=== PATIENT | male | born 1990 | race Hispanic/Latino ===

== ENCOUNTER 2018-03-09 06:59 | Emergency (ER) | payer OTHER ==
[~2018-03-09] VITALS: Ht 175.3 cm; Wt 86.2 kg
--- NOTE | 2018-03-09 07:25 | ED CARDIAC/CP/PALPITATIONS ---
History of Present Illness General Chief Complaint: Chest Pain Stated Complaint: THIGHTNESS IN CHEST ? ANXIETY Source: patient Exam Limitations: no limitations Vital Signs & Intake/Output Vital Signs & Intake/Output Vital Signs Date Time Temp Pulse Resp B/P B/P Pulse O2 O2 Flow FiO2 Mean Ox Delivery Rate 03/09 908 97.9 70 20 139/64 98 Room Air 03/09 0729 98 Room Air 03/09 0713 98.4 92 18 151/79 98 Room Air Room Air Allergies Coded Allergies: lactose (Intermediate, ABD CRAMPING, DIARRHEA 03/09/18) Reconcile Medications No Known Home Medications Triage Note: EKG DONE, PT TO ED WITH C/O CHEST TIGHTNESS, DIFF BREATHING, "I HAD THE SAME, LAST WEEK WATCHING TB BUT IT WAS A SHARP PAIN, BUT I CALMED DOWN AND IT WENT AWAY". PT TOOK NO MEDS FOR THE PAIN. Triage Nurses Notes Reviewed? yes HPI: 27-year-old presents to the emergency department after an episode of substernal chest tightness that occurred while he was getting ready for work. Patient had just found out that his girlfriend is and he has a 6-month-old son ready. Patient states that this has occurred over the past when he has gotten startling use. The tightness lasted approximately 10-15 minutes and then resolved on its own. Patient works for the [employer] and has active child but is able to do his job without any difficulties, chest pain or shortness of breath. Patient states during the episode of chest tightness he felt like he was having difficulty catching his breath. There is no recent plane travel or long trips. There is no leg swelling. He had a similar episode a few days ago and that tightness he rated at 10 out of 10 however this morning's episode was not nearly as bad. Patient did become concerned because his father around the age of 30 and he does not know why. Past History Travel History Traveled to [place] past 21 day No Medical History Any Pertinent Medical History? 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 No Review of Systems Review of Systems Constitutional: Reports: no symptoms. EENTM: Reports: no symptoms. Respiratory: Reports: see HPI, short of breath. Cardiovascular: Reports: see HPI, chest pain. GI: Reports: no symptoms. Genitourinary: Reports: no symptoms. Musculoskeletal: Reports: no symptoms. Skin: Reports: no symptoms. Neurological/Psychological: Reports: no symptoms. Hematologic/Endocrine: Reports: no symptoms. Immunologic/Allergic: Reports: no symptoms. All Other Systems: Reviewed and Negative Physical Exam Physical Exam General Appearance: well developed/nourished, alert, awake, mild distress Head: atraumatic Eyes: Bilateral: PERRL, EOMI. Ears, Nose, Throat: normal pharynx, normal ENT inspection Neck: normal inspection, supple, full range of motion Respiratory: normal breath sounds, chest non-tender, no respiratory distress, lungs clear Cardiovascular: regular rate/rhythm, normal peripheral pulses Gastrointestinal: normal bowel sounds, soft, non-tender, no organomegaly Back: normal inspection Extremities: normal inspection, normal capillary refill, normal range of motion, no edema Neurologic/Psych: no motor/sensory deficits, awake, alert, oriented x 3, normal gait Skin: intact, normal color, warm/dry Core Measures ACS in differential dx? No CVA/TIA Diagnosis No Sepsis Present: No Sepsis Focused Exam Completed? No Progress Differential Diagnosis: AMI, musculoskeletal pain, myocarditis, pericarditis, pulmonary embolism Plan of Care: Orders Procedure Date/time Status TROPONIN LEVEL 03/09 942 Complete EKG 03/09 942 Active TROPONIN LEVEL 03/09 743 Complete COMPREHENSIVE METABOLIC PANEL 03/09 743 Complete CBC WITHOUT DIFFERENTIAL 03/09 743 Complete EKG 03/09 07 Active Laboratory Tests 03/09/18 0954: Troponin I < 0.01 03/09/18 0757: Anion Gap 9, Estimated GFR > 60, BUN/Creatinine Ratio 21.4, Glucose 107 H, Calcium 9.3, Total Bilirubin 0.5, AST 38, ALT 105 H, Alkaline Phosphatase 61, Troponin I < 0.01, Total Protein 6.9, Albumin 4.4, Globulin 2.5, Albumin/ Globulin Ratio 1.8, CBC w Diff NO MAN DIFF REQ, RBC 4.56 L, MCV 94.6 H, MCH 32.9 H, MCHC 34.8, RDW 12.3, MPV 7.7, Gran % 65.9, Lymphocytes % 26.1, Monocytes % 5.1, Eosinophils % 2.2, Basophils % 0.7, Absolute Granulocytes 5.7, Absolute Lymphocytes 2.2, Absolute Monocytes 0.4, Absolute Eosinophils 0.2, Absolute Basophils 0.1 Initial ED EKG: NSR, no ST T wave changes, NO OLD TO COMPARE Repeat EKG: unchanged Comments: VERY Unlikely to be a pulmonary emboli. No cardiac risk factors. Uncertain family history. Patient has been updated on results. Questions are been answered. We'll obtain a second set of enzymes. Departure Departure Disposition: HOME OR SELF CARE Condition: Stable Clinical Impression Primary Impression: Chest pain, unspecified Referrals: Héctor CHAVEZ,Arthur Adam (PCP/Family) Sunil Shahid MD Additional Instructions: Please follow up with the raw material planner provided and your regualr doctor. The only thing we can tell you for sure is that you did not have a heart attack at this time. There are any more things that will need to be evaluated on your heart that the raw material planner will do. If you develop pain before seeing the raw material planner, or you have any concerns, please return immediatley to the emergency department. Departure Forms: Customer Survey General Discharge Information Prescriptions: Current Visit Scripts No Known Home Medications Critical Care Note Critical Care Note Critical Care Time: non-applicable
[2018-03-09 08:13] LABS: ABSOLUTE BASOPHIL COUNT 0.1 /CUMM (0.0-0.2); ABSOLUTE EOSINOPHIL COUNT 0.2 /CUMM (0.0-0.7); ABSOLUTE GRANULOCYTE CT 5.7 /CUMM (1.4-6.5); ABSOLUTE LYMPH COUNT 2.2 /CUMM (1.2-3.4); ABSOLUTE MONOCYTE COUNT 0.4 /CUMM (0.10-0.60); BASOPHIL % 0.7 % (0.0-2.0); EOSINOPHIL % 2.2 % (0-5); GRANULOCYTE % 65.9 % (42.2-75.2); HEMATOCRIT 43.2 % (42-52); MEAN CORPUSCULAR HGB 32.9 PG (27.0-31.0); MEAN CORPUSCULAR HGB CONC 34.8 G/DL (33.0-37.0); MEAN CORPUSCULAR VOLUME 94.6 FL (80.0-94.0); MEAN PLATELET VOLUME 7.7 FL (7.4-10.4); PLATELET COUNT 217 /CUMM (130-400); RBC DISTRIBUTION WIDTH 12.3 % (11.5-14.5); RED BLOOD CELL CT 4.56 /CUMM (4.70-6.10); WHITE BLOOD CELL COUNT 8.6 /CUMM (4.8-10.8)
[2018-03-09 11:14] VITALS: BP 138/88
== END 2018-03-09 11:08 ==
LOC: ERH 06:59
PROVIDERS: Emergency Medicine
DX: R07.2 Precordial pain (principal); J45.909 Unspecified asthma, uncomplicated; F17.210 Nicotine dependence, cigarettes, uncomplicated
CPT/HCPCS: 93005; 93010

== ENCOUNTER 2018-04-02 04:50 | Emergency (ER) | payer OTHER ==
[~2018-04-02] VITALS: Ht 177.8 cm; Wt 87.1 kg
--- NOTE | 2018-04-02 04:56 | ED GENERAL ADULT ---
History of Present Illness General Chief Complaint: General Adult Stated Complaint: BIBA FOR NUMB HANDSAND FEET Source: patient, old records, EMS Exam Limitations: no limitations Vital Signs & Intake/Output Vital Signs & Intake/Output Vital Signs Date Time Temp Pulse Resp B/P B/P Pulse O2 O2 Flow FiO2 Mean Ox Delivery Rate 04/02 0636 84 18 124/70 96 Room Air 04/02 0604 98.3 04/02 0530 73 18 118/68 95 Room Air Allergies Coded Allergies: lactose (Intermediate, ABD CRAMPING, DIARRHEA 03/09/18) Reconcile Medications No Known Home Medications Triage Note: BIBA EMS FROM HOME FOR NUMBNESS AND TINGLING IN BILATERAL ARMS AND LEGS. PER EMS BG = 211. PT HAS HX ANXIETY. PT A&OX3 AT THIS TIME. PT STATES HE WOKE UP AT APPROX 0400 AND HE WAS HYPERVENTILATING AND COULD NOT MOVE HIS ARMS OR LEGS BECAUSE THEY WERE NUMB AND HAD A TINGLING SENSATION. PT DENIES ANY OTHER COMPLAINTS AT THIS TIME. RESPIRATIONS NON-LABORED. SKIN WARM/DRY. Triage Nurses Notes Reviewed? yes HPI: Patient states he woke up at 4:00 in the morning and felt like he could not make a fist in either hand and that his feet felt tingly and he had difficulty getting up. Patient denies any weakness. There is no headache. No blurry vision. Patient became very anxious and called 911. Patient states he is feeling a little bit better and has better movement in his hands. There is no pain. There is no recent injury. Past History Medical History Any Pertinent Medical History? 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 No Review of Systems Review of Systems Constitutional: Reports: no symptoms. EENTM: Reports: no symptoms. Respiratory: Reports: no symptoms. Cardiovascular: Reports: no symptoms. GI: Reports: no symptoms. Genitourinary: Reports: no symptoms. Musculoskeletal: Reports: see HPI. Skin: Reports: no symptoms. Neurological/Psychological: Reports: see HPI. Hematologic/Endocrine: Reports: no symptoms. Immunologic/Allergic: Reports: no symptoms. All Other Systems: Reviewed and Negative Physical Exam Physical Exam General Appearance: well developed/nourished, alert, awake, anxious Head: atraumatic Eyes: Bilateral: PERRL, EOMI. Ears, Nose, Throat: normal pharynx, normal ENT inspection, hearing grossly normal Neck: normal inspection, supple, full range of motion Respiratory: normal breath sounds, chest non-tender, no respiratory distress, lungs clear Cardiovascular: regular rate/rhythm, normal peripheral pulses Gastrointestinal: normal bowel sounds, soft, non-tender, no organomegaly Back: normal inspection, normal range of motion, no vertebral tenderness Extremities: normal inspection, normal capillary refill, normal range of motion, no edema Neurologic/Psych: no motor/sensory deficits, awake, alert, oriented x 3, normal gait, normal mood/affect Skin: intact, normal color, warm/dry Comments: Patient feels he cannot make a fist however in showing that he cannot make a fist patient was able to make a fist without any difficulty. His capillary refill is less than 2 seconds. He has normal sensation. There is no swelling. Core Measures ACS in differential dx? No CVA/TIA Diagnosis: No Sepsis Present: No Sepsis Focused Exam Completed? No Progress Differential Diagnoses I considered the following diagnoses in my evaluation of the patient: [ Electrolyte abnormality, anxiety] Plan of Care: Orders Procedure Date/time Status Add-on Test (ER Only) 04/02 0548 Active URINALYSIS 04/02 0548 Complete MAGNESIUM 04/02 0505 Complete COMPREHENSIVE METABOLIC PANEL 04/02 0455 Complete CBC WITHOUT DIFFERENTIAL 04/02 0455 Complete Laboratory Tests 04/02/18 0555: Urinalysis LIGHT H, Urine Color YEL, Urine Clarity HAZY H, Urine pH 6.0, Ur Specific [place] 1.025, Urine Protein TRACE H, Urine Ketones TRACE H, Urine Nitrite NEG, Urine Bilirubin NEG, Urine Urobilinogen 0.2, Ur Leukocyte Esterase NEG, Ur Microscopic SEDIMENT EXAMINED, Urine RBC 1-3, Urine WBC RARE, Urine Bacteria RARE H, Urine Mucus MOD H, Urine Hemoglobin NEG, Urine Glucose >=1000 H 04/02/18 0505: Anion Gap 11, Estimated GFR > 60, BUN/Creatinine Ratio 14.3, Glucose 173 H, Calcium 9.8, Magnesium 2.1, Total Bilirubin 0.6, AST 33, ALT 97 H, Alkaline Phosphatase 68, Total Protein 7.4, Albumin 4.6, Globulin 2.8, Albumin/Globulin Ratio 1.6, CBC w Diff MAN DIFF ORDERED, RBC 4.78, MCV 94.4 H, MCH 32.7 H, MCHC 34.7, RDW 12.2, MPV 7.5, Gran % 94.1 H, Lymphocytes % 3.1 L, Monocytes % 2.8, Eosinophils % 0, Basophils % 0, Absolute Granulocytes 20.4 H, Segmented Neutrophils 92 H, Band Neutrophils 2, Absolute Lymphocytes 0.7 L, Lymphocytes 4 L, Monocytes 2, Absolute Monocytes 0.6, Absolute Eosinophils 0, Absolute Basophils 0, Platelet Estimate ADEQUATE, Normocytic RBCs VERIFIED, Normochromic RBCs VERIFIED, Fld Total RBCs Counted 100 Diagnostic Imaging: Viewed by Me: Radiology Read. Discussed w/RAD: Radiology Read. CXR Impression: PATIENT: KENNY KENDALL PRESENT AGE: 28 PATIENT ACCOUNT NO: [id number] : 90 LOCATION: [facility] ORDERING PHYSICIAN: Adrien Santoyo MD SERVICE DATE: 04/02/18 EXAM TYPE: RAD - XRY-CHEST XRAY, TWO VIEWS EXAMINATION: XR CHEST CLINICAL INFORMATION: Leukocytosis. COMPARISON: None TECHNIQUE: 2 views of the chest were obtained. FINDINGS: Patient's change seen overlying the lung apices which obscures evaluation of this level. Cardiac silhouette is within normal limits for size. No focal lung opacity. No significant pneumothorax or pleural effusion. Regional osseous structures are intact. IMPRESSION: No acute intrathoracic abnormality. DICTATED BY: Arben Blanco MD DATE/TIME DICTATED:04/02/18639 PHOTORESIST CONTACT PRINTER: EMBER DATE/TIME TRANSCRIBED:04/02/18639 CONFIDENTIAL, DO NOT COPY WITHOUT APPROPRIATE AUTHORIZATION. <Electronically signed in Other Vendor System> SIGNED BY: Arben Blanco MD 04/02/18647 Initial ED EKG: none Comments: Patient's girlfriend had given him some prednisone because he had a cold. Patient advised that his blood sugar is elevated and he really needs to see his primary care physician to make sure he does not have diabetes. Patient is feeling better after the potassium. Departure Departure Disposition: HOME OR SELF CARE Condition: Stable Clinical Impression Primary Impression: Hypokalemia Secondary Impressions: Hyperglycemia Referrals: Arthur Anaya MD, V (PCP/Family) Additional Instructions: RETURN FOR ANY CONCERNS Departure Forms: Customer Survey General Discharge Information Prescriptions: Current Visit Scripts No Known Home Medications Critical Care Note Critical Care Note Critical Care Time: non-applicable
[2018-04-02 05:27] LABS: ABSOLUTE BASOPHIL COUNT 0 /CUMM (0.0-0.2); ABSOLUTE EOSINOPHIL COUNT 0 /CUMM (0.0-0.7); ABSOLUTE GRANULOCYTE CT 20.4 /CUMM (1.4-6.5); ABSOLUTE LYMPH COUNT 0.7 /CUMM (1.2-3.4); ABSOLUTE MONOCYTE COUNT 0.6 /CUMM (0.10-0.60); BASOPHIL % 0 % (0.0-2.0); EOSINOPHIL % 0 % (0-5); GRANULOCYTE % 94.1 % (42.2-75.2); HEMATOCRIT 45.2 % (42-52); MEAN CORPUSCULAR HGB 32.7 PG (27.0-31.0); MEAN CORPUSCULAR HGB CONC 34.7 G/DL (33.0-37.0); MEAN CORPUSCULAR VOLUME 94.4 FL (80.0-94.0); MEAN PLATELET VOLUME 7.5 FL (7.4-10.4); PLATELET COUNT 239 /CUMM (130-400); RBC DISTRIBUTION WIDTH 12.2 % (11.5-14.5); RED BLOOD CELL CT 4.78 /CUMM (4.70-6.10); WHITE BLOOD CELL COUNT 21.6 /CUMM (4.8-10.8)
--- NOTE | 2018-04-02 06:48 | RADIOLOGY REPORT ---
EXAMINATION: XR CHEST CLINICAL INFORMATION: Leukocytosis. COMPARISON: None TECHNIQUE: 2 views of the chest were obtained. FINDINGS: Patient's change seen overlying the lung apices which obscures evaluation of this level. Cardiac silhouette is within normal limits for size. No focal lung opacity. No significant pneumothorax or pleural effusion. Regional osseous structures are intact. IMPRESSION: No acute intrathoracic abnormality.
[2018-04-02 09:03] VITALS: BP 120/74
== END 2018-04-02 09:03 ==
LOC: ERH 04:50
PROVIDERS: Emergency Medicine
DX: E87.6 Hypokalemia (principal); R73.9 Hyperglycemia, unspecified; J45.909 Unspecified asthma, uncomplicated
CPT/HCPCS: 71046; 81001